=== PATIENT | female | born 1965 | race Caucasian/White ===

== ENCOUNTER 2017-05-01 18:19 | Emergency (ER) | payer MEDICAID ==
[2017-05-01 18:29] VITALS: BP 165/88; BMI 34.0
--- NOTE | 2017-05-01 18:43 | DR.GENAD ---
HPI - PCP Primary Care Physician: sean - Complaint/Symptoms Chief Complaint:: states" we went to see Dr. Sullivan's PA she said she was dehydrated and her blood pressure is real high " - Source History Provided: Patient - Mode of Arrival Mode of Arrival: Ambulatory - Timing Onset of Chief Complaint: 05/01/17 PMH - PMH Past Medical History: Yes Past Medical History: Asthma, Hypertension Past Medical History Comment: chronic back pain Past Surgical History: Yes Surgical History: SUSTAINABILITY MANAGER Surgery Past Surgical History Comment: back surgery tubaligation - Family History History of Family Medical Conditions: Yes Family Medical History: Cancer, Hypertension - Social History Type of Tobacco Use: Cigarettes Does any household member use tobacco: No Alcohol Use: None Do you use any recreational Drugs:: No Lives With: Family Lives Where: Home - infectious screening In the last 2 months have you had wt loss of >10#?: NO Have you had fever, night sweats or hemotysis?: No Have you traveled outside the country in the last 6 months?: No Isolation: Standard ROS - Review of Systems Eyes: No Symptoms Reported ENTM: No Symptoms Reported Respiratoy: No Symptoms Reported Cardiovascular: No Symptoms Reported Gastrointestinal/Abdominal: No Symptoms Reported Genitourinary: No Symptoms Reported Neurological: No Symptoms Reported Musculoskeletal: No Symptoms Reported Integumentary: No Symptoms Reported Hematologic/Lymphatic: No Symptoms Reported Endocrine: No Symptoms Reported Psychiatric: No Symptoms Reported All Other Systems: Reviewed and Negative PE - Vital Signs Vitals: Temperature 97.8 F Pulse Rate 82 Respiratory Rate 18 Blood Pressure 165/88 O2 Sat by Pulse Oximetry 96 - General Limitations: No Limitations General Appearance: Alert, In No Apparent Distress - Head Head Exam: Normal Inspection, Atraumatic - Eyes Eye exam: Normal Appearance, PERRL, EOMI - ENT ENT Exam: Normal Exam External Ear Exam: Normal External Inspection TM/Canal Exam: Bilateral Normal Nose Exam: Normal Nose Exam Mouth Exam: Normal Inspection Throat Exam: Normal Inspection - Neck Neck Exam: Normal Inspection - Chest Chest Inspection: Normal Inspection - Respiratory Respiratory Exam: Normal Lung Sounds Bilat Respiratory Exam: Bilateral Clear to Auscultation - Cardiovascular Cardiovascular Exam: Regular Rate, Normal Rhythm - Abdominal Exam Abdominal Exam: Normal Inspection, Normal Bowel Sounds, Soft Abdominal Tenderness: negative: RUQ, RLQ, LUQ, LLQ, Epigastrium, Suprapubic, Diffuse, Mild, Moderate, Severe, Other - Extremities Extremities Exam: Joint Swelling, Other (2+pitting lower extremities) - Back Back Exam: Normal Inspection, Full ROM - Neurologic Neurological Exam: Alert, Oriented X3, CN II-XII Intact - Psychiatric Psychiatric Exam: Normal Affect, Normal Mood - Skin Skin Exam: Warm, Dry, Intact Course - Reevaluation 1st: Unchanged ROR - Labs Reviewed Result Diagrams: 05/01/17 19:03 05/01/17 19:03 Laboratory: WBC 9.5 X10^3/uL (3.6-10.0) 05/01/17 19:03 RBC 5.20 X10^6/uL (3.5-5.4) 05/01/17 19:03 Hgb 16.3 g/dL (12.0-16.0) H 05/01/17 19:03 Hct 47.2 % (36.0-47.0) H 05/01/17 19:03 MCV 90.8 fL (80.0-100.0) 05/01/17 19:03 MCH 31.3 pg (27.0-34.0) 05/01/17 19:03 MCHC 34.5 g/dL (33.0-35.0) 05/01/17 19:03 RDW 14.9 % (11.6-16.5) 05/01/17 19:03 Plt Count 329 X10^3/uL (150.0-450.0) 05/01/17 19:03 MPV 7.9 fL (7.4-11.0) 05/01/17 19:03 Neut % 67.1 % (42.0-75.0) 05/01/17 19:03 Lymph % 21.2 % (21.0-51.0) 05/01/17 19:03 [place] % 7.3 % (0.0-13.0) 05/01/17 19:03 Eos % 3.2 % (0.9-2.9) H 05/01/17 19:03 Baso % 1.2 % (0.2-1.0) H 05/01/17 19:03 Neut # 6.4 x10^3/uL (2.2-4.8) H 05/01/17 19:03 Lymph # 2.0 X10^3/uL (1.3-2.9) 05/01/17 19:03 [place] # 0.7 x10^3/uL (0.3-0.8) 05/01/17 19:03 Eos # 0.3 x10^3/uL (0.0-0.2) H 05/01/17 19:03 Baso # 0.1 X10^3/uL (0.0-0.1) 05/01/17 19:03 Absolute Nucleated RBC 0.0 /100WBC 05/01/17 19:03 Sodium 137 mmol/L (136-145) 05/01/17 19:03 Corrected Sodium TNP 05/01/17 19:03 Potassium 4.5 mmol/L (3.5-5.1) 05/01/17 19:03 Chloride 99 mmol/L (98-107) 05/01/17 19:03 Carbon Dioxide 33.1 mmol/L (21-32) H 05/01/17 19:03 BUN 11 mg/dL (7-18) 05/01/17 19:03 Creatinine 0.87 mg/dL (0.55-1.02) 05/01/17 19:03 Est GFR (MDRD) Af Amer > 60 (>60) 05/01/17 19:03 Est GFR (MDRD) Non-Af > 60 (>60) 05/01/17 19:03 Glucose 101 mg/dL (65-99) H 05/01/17 19:03 Calcium 8.9 mg/dL (8.5-10.1) 05/01/17 19:03 Specimen Type Clean catch urine 05/01/17 20:00 Urine Color Yellow (YELLOW) 05/01/17 20:00 Urine Appearance Clear (CLEAR) 05/01/17 20:00 Urine pH 7.0 (5.0 - 8.0) 05/01/17 20:00 Ur Specific [place] 1.010 (1.000-1.030) 05/01/17 20:00 Urine Protein Negative (NEGATIVE) 05/01/17 20:00 Urine Glucose (UA) Negative (NEGATIVE) 05/01/17 20:00 Urine Ketones Negative (NEGATIVE) 05/01/17 20:00 Urine Occult Blood 1+ (NEGATIVE) 05/01/17 20:00 Urine Nitrite Negative (NEGATIVE) 05/01/17 20:00 Urine Bilirubin Negative (NEGATIVE) 05/01/17 20:00 Urine Urobilinogen Normal (NORMAL) 05/01/17 20:00 Ur Leukocyte Esterase 1+ (NEGATIVE) 05/01/17 20:00 Urine RBC 0-3 /HPF (NEGATIVE) 05/01/17 20:00 Urine WBC 2-4 /HPF (NEGATIVE) 05/01/17 20:00 Ur Squamous Epith Cells Rare /HPF (NEGATIVE) 05/01/17 20:00 Urine Bacteria Trace /HPF (NEGATIVE) 05/01/17 20:00 Ur Culture Indicated? No/not indicated 05/01/17 20:00 Influenza Type A (PCR) Negative (NEGATIVE) 05/01/17 19:03 Influenza Type B (PCR) Negative (NEGATIVE) 05/01/17 19:03 - XRAY XRAY Interpreted by: Radiologist (Chest: No acute cardiopulmonary disease) - Diagnosis Discharge Problem: Influenza-like illness - Discharge Plan Condition: Stable - Follow ups/Referrals Follow ups/Referrals: NFD,None [Primary Care Provider] - 3 days - Instructions
[2017-05-01] MEDS ORDERED: DUONEB 0.5 MG/3 MG NEB ONE (18:51)
[2017-05-01] MEDS ORDERED: DUONEB 0.5 MG/3 MG ONE (18:54)
[2017-05-01 19:22] LABS: BASOPHILS # (AUTO) 0.1 X10^3/uL (0.0-0.1); BASOPHILS % (AUTO) 1.2 % (0.2-1.0); EOSINOPHILS # (AUTO) 0.3 x10^3/uL (0.0-0.2); EOSINOPHILS % (AUTO) 3.2 % (0.9-2.9); HEMATOCRIT 47.2 % (36.0-47.0); HEMOGLOBIN 16.3 g/dL (12.0-16.0); LYMPHOCYTES % (AUTO) 21.2 % (21.0-51.0); MEAN CORPUSCULAR HEMOGLOBIN 31.3 pg (27.0-34.0); MEAN CORPUSCULAR HGB CONC 34.5 g/dL (33.0-35.0); MEAN CORPUSCULAR VOLUME 90.8 fL (80.0-100.0); MEAN PLATELET VOLUME 7.9 fL (7.4-11.0); MONOCYTES # (AUTO) 0.7 x10^3/uL (0.3-0.8); MONOCYTES % (AUTO) 7.3 % (0.0-13.0); NEUTROPHILS # (AUTO) 6.4 x10^3/uL (2.2-4.8); NEUTROPHILS % (AUTO) 67.1 % (42.0-75.0); PLATELET COUNT 329 X10^3/uL (150.0-450.0); RED CELL DISTRIBUTION WIDTH 14.9 % (11.6-16.5); WHITE BLOOD COUNT 9.5 X10^3/uL (3.6-10.0)
[2017-05-01 19:26] LABS: BLOOD UREA NITROGEN 11 mg/dL (7-18); CALCIUM 8.9 mg/dL (8.5-10.1); CARBON DIOXIDE 33.1 mmol/L (21-32); CHLORIDE 99 mmol/L (98-107); CREATININE 0.87 mg/dL (0.55-1.02); SODIUM 137 mmol/L (136-145); eGFR BLACK RACES > 60 (>60); eGFR NON BLACK RACES > 60 (>60)
--- NOTE | 2017-05-01 19:56 | RAD ---
HISTORY: Wheezing Study: Single-view chest Comparison: None available Findings: The trachea is midline. The cardiac silhouette is unremarkable. The lungs are clear without focal i nfiltrate or effusion. The bony thorax is unremarkable. IMPRESSION: 1. No acute cardiopulmonary disease. Reported By:
[2017-05-01 20:11] LABS: BILIRUBIN,URINE NEGATIVE (NEGATIVE); BLOOD/HEMOGLOBIN,URINE 1+ (NEGATIVE); GLUCOSE, URINE NEGATIVE (NEGATIVE); KETONES,URINE NEGATIVE (NEGATIVE); LEUKOCYTE ESTERASE ,URINE 1+ (NEGATIVE); NITRITES,URINE NEGATIVE (NEGATIVE); PROTEIN,URINE NEGATIVE (NEGATIVE); UROBILINOGEN,URINE NORMAL (NORMAL)
[2017-05-01 20:23] LABS: APPEARANCE,URINE CLEAR (CLEAR); BACTERIA,URINE TRACE /HPF (NEGATIVE); COLOR,URINE YELLOW (YELLOW); RBC,URINE 0-3 /HPF (NEGATIVE); SQUAMOUS EPITHELIAL CELL,UR RARE /HPF (NEGATIVE)
== END 2017-05-01 21:02 | disposition home or self-care (01) ==
LOC: ER 18:38
DX: J11.1 Influenza due to unidentified influenza virus with other respiratory manifestations (principal)
CPT/HCPCS: 36415; 71010; 80048; 81001; 85025; 87502; 94640; 99283; J7620

== ENCOUNTER → 2017-05-02 | Outpatient (CLI) | payer MEDICAID ==
[2014-01-09 00:27] VITALS: BP 129/85
--- NOTE | 2017-05-02 16:19 | CT ---
CT head without contrast Indication: Headache, syncope, dizziness Comparison: 01/19/2014 Technique: CT images of the head were obtained without contrast. Automatic exposure control was utili [employer]. Findings: There is no acute bleed, mass effect, or abnormal extra-axial collection. The ventricles ar e not significantly dilated. Patchy areas of white matter hypoattenuation are similar to prior and nelson ggestive for chronic microangiopathy. No acute skeletal abnormality identified. The visualized parana eda sinuses and mastoid air cells are clear. Impression: No acute intracranial abnormality. Reported By:
== END ==
LOC: RAD 14:17
PROVIDERS: ATTEND Nurse Practitioner
DX: R51 Headache (principal)
CPT/HCPCS: 70450

== ENCOUNTER 2018-04-09 14:50 | Inpatient (IN) ==
[2018-04-09] MEDS ORDERED: PHARMACY CONSULT - VANCOMYCIN XX SCH (15:47)
[2018-04-09] MEDS ORDERED: VANCOMYCIN HCL 1 GM VIAL 1 G in D5W 250 ML IV 250 ML IV SCH (16:00)
[2018-04-09 16:31] LABS: BASOPHILS # (AUTO) 0.1 X10^3/uL (0.0-0.1); BASOPHILS % (AUTO) 0.4 % (0.2-1.0); EOSINOPHILS # (AUTO) 0.3 x10^3/uL (0.0-0.2); EOSINOPHILS % (AUTO) 1.9 % (0.9-2.9); HEMATOCRIT 40.8 % (36.0-47.0); HEMOGLOBIN 13.7 g/dL (12.0-16.0); LYMPHOCYTES # (AUTO) 1.7 X10^3/uL (1.3-2.9); MEAN CORPUSCULAR HEMOGLOBIN 31.3 pg (27.0-34.0); MEAN CORPUSCULAR HGB CONC 33.5 g/dL (33.0-35.0); MEAN CORPUSCULAR VOLUME 93.4 fL (80.0-100.0); MEAN PLATELET VOLUME 8.2 fL (7.4-11.0); MONOCYTES # (AUTO) 1.4 x10^3/uL (0.3-0.8); MONOCYTES % (AUTO) 9.2 % (0.0-13.0); NEUTROPHILS % (AUTO) 77.5 % (42.0-75.0); PLATELET COUNT 479 X10^3/uL (150.0-450.0); RED BLOOD COUNT 4.37 X10^6/uL (3.5-5.4); RED CELL DISTRIBUTION WIDTH 15.7 % (11.6-16.5); WHITE BLOOD COUNT 15.5 X10^3/uL (3.6-10.0)
[2018-04-09] MEDS: TORADOL 30 MG VIAL IVP SCH ×2 (16:35→20:49)
[2018-04-09] MEDS: NS 1000 ML 1,000 ML IV SCH (16:35)
[2018-04-09 16:38] LABS: ALANINE AMINOTRANSFERASE 28 Units/L (12-78); ALBUMIN 3.2 g/dL (3.4-5.0); ALKALINE PHOSPHATASE 132 Units/L (46-116); ASPARTATE AMINO TRANSFERASE 40 Units/L (15-37); BLOOD UREA NITROGEN 13 mg/dL (7-18); CALCIUM 9.3 mg/dL (8.5-10.1); CARBON DIOXIDE 34.8 mmol/L (21-32); CHLORIDE 95 mmol/L (98-107); COR CA(FOR HYPOALB) 9.9 mg/dL (8.5-10.1); SODIUM 135 mmol/L (136-145); TOTAL PROTEIN 8.4 g/dL (6.4-8.2); eGFR NON BLACK RACES 55 (>60)
--- NOTE | 2018-04-09 16:52 | VAS ---
HISTORY: Left leg pain, edema and redness Study: Venous Doppler Ultrasound Lower Extremities Comparison: None TECHNIQUE: Multiple howell scale and color flow Doppler images of the deep venous system were obtained of the left lower extremity. FINDINGS: The deep venous system of the left lower extremity was evaluated from the level of the common femoral vein through the popliteal vein. Normal color flow and augmentation can be observed. In addition, normal compression is seen throughout the deep venous system. IMPRESSION: 1. Negative for DVT. Reported By:
[2018-04-09] MEDS: DUONEB 0.5 MG/3 MG NEB SCH (20:50)
[2018-04-10] MEDS: VANCOMYCIN HCL 1 GM VIAL 1 G in D5W 250 ML IV 250 ML IV SCH ×3 (00:02→21:18)
[2018-04-10] MEDS: TORADOL 30 MG VIAL IVP SCH ×4 (02:54→20:48)
[2018-04-10] MEDS: NS 1000 ML 1,000 ML IV SCH ×2 (04:46→17:57)
[2018-04-10 05:23] LABS: BASOPHILS # (AUTO) 0.1 X10^3/uL (0.0-0.1); EOSINOPHILS # (AUTO) 0.3 x10^3/uL (0.0-0.2); EOSINOPHILS % (AUTO) 2.9 % (0.9-2.9); HEMATOCRIT 37.3 % (36.0-47.0); HEMOGLOBIN 12.5 g/dL (12.0-16.0); LYMPHOCYTES # (AUTO) 1.4 X10^3/uL (1.3-2.9); LYMPHOCYTES % (AUTO) 13.1 % (21.0-51.0); MEAN CORPUSCULAR HEMOGLOBIN 31.6 pg (27.0-34.0); MEAN CORPUSCULAR HGB CONC 33.4 g/dL (33.0-35.0); MEAN CORPUSCULAR VOLUME 94.7 fL (80.0-100.0); MEAN PLATELET VOLUME 7.9 fL (7.4-11.0); MONOCYTES # (AUTO) 1.1 x10^3/uL (0.3-0.8); MONOCYTES % (AUTO) 10.6 % (0.0-13.0); NEUTROPHILS # (AUTO) 7.6 x10^3/uL (2.2-4.8); NEUTROPHILS % (AUTO) 72.4 % (42.0-75.0); PLATELET COUNT 376 X10^3/uL (150.0-450.0); RED BLOOD COUNT 3.94 X10^6/uL (3.5-5.4); RED CELL DISTRIBUTION WIDTH 15.2 % (11.6-16.5); WHITE BLOOD COUNT 10.4 X10^3/uL (3.6-10.0)
[2018-04-10 05:26] LABS: ALANINE AMINOTRANSFERASE 21 Units/L (12-78); ALBUMIN 2.6 g/dL (3.4-5.0); ALKALINE PHOSPHATASE 107 Units/L (46-116); ASPARTATE AMINO TRANSFERASE 26 Units/L (15-37); BLOOD UREA NITROGEN 15 mg/dL (7-18); CALCIUM 8.6 mg/dL (8.5-10.1); CARBON DIOXIDE 36.7 mmol/L (21-32); CHLORIDE 98 mmol/L (98-107); COR CA(FOR HYPOALB) 9.7 mg/dL (8.5-10.1); CREATININE 0.97 mg/dL (0.55-1.02); SODIUM 136 mmol/L (136-145); TOTAL PROTEIN 6.9 g/dL (6.4-8.2); eGFR NON BLACK RACES > 60 (>60)
[2018-04-10] MEDS: DUONEB 0.5 MG/3 MG NEB SCH ×4 (09:31→20:38)
[2018-04-10 15:29] VITALS: BMI 37.3
[2018-04-10] MEDS ORDERED: NITROSTAT SL PRN (16:32)
[2018-04-10] MEDS ORDERED: PATIENT'S HOME MEDICATION (Albuterol Sulfate [Proventil Hfa] 2 PUFF) IN PRN (16:32)
[2018-04-10] MEDS ORDERED: PHENERGAN TAB 25 MG PO PRN (16:32)
[2018-04-10] MEDS ORDERED: ZANAFLEX PO PRN (16:32)
[2018-04-10] MEDS ORDERED: PATIENT'S HOME MEDICATION (Oxycodone-Acetaminophen [Oxycodone-Acetaminophen] 1 TAB) PO PRN (16:32)
[2018-04-10] MEDS ORDERED: PATIENT'S HOME MEDICATION (Tiotropium Bromide 1 CAP) IN SCH (16:45)
[2018-04-10] MEDS ORDERED: PATIENT'S HOME MEDICATION (Umeclidinium-Vilanterol [Anoro Ellipta] 1 INH) IN SCH (16:45)
[2018-04-10] MEDS ORDERED: ULTRAM PO SCH (17:00)
[2018-04-10] MEDS ORDERED: ZESTRIL TAB 40 MG PO SCH (17:00)
[2018-04-10] MEDS: LOPRESSOR TAB 25 MG PO SCH (17:38)
[2018-04-10] MEDS: XANAX PO SCH ×2 (17:39→20:47)
[2018-04-10] MEDS: NICOTINE PATCH TD SCH (17:39)
[2018-04-10] MEDS: PERCOCET TAB 5/325 MG PO PRN (17:40)
[2018-04-10] MEDS: ZESTRIL TAB 40 MG PO SCH (17:57)
[2018-04-10] MEDS: TAPENTADOL 100 MG PO SCH (17:57)
--- NOTE | 2018-04-10 20:33 | DR.UPDATE ---
H&P Update History and Physical Update: WAS SEEN IN THE OFFICE TODAY. A H&P WAS COMPLETED PRIOR TO ADMISSION. PATIENT HAS BEEN SEEN AND EXAMINED WITH NO CHANGES NOTED TO H&P. Changes noted: NO Yes with the following:
--- NOTE | 2018-04-10 20:36 | PCM.PROG ---
Progress Note - Progress Note for Day of Date of Exam: 04/10/18 - Subjective Subjective: WAS ADMITTED FOR LLE CELLULITIS. TODAY, SHE IS ALERT AND ORIENTED, LYING IN BED ON MORNING ROUNDS. SHE IS NOTED WITH CONTINUED COMPLAINTS OF REDNESS, SWELLING, AND PAIN TO THE LEFT LEG. ON EXAMINATION, HEART IS REGULAR IN RATE AND RHYTHM. BILATERAL LUNGS ARE NOTED TO BE CLEAR TO AUSCULTATION. ABDOMEN IS ROUND, SOFT, AND NON-TENDER WITH NORMAL BOWEL SOUNDS NOTED IN ALL QUADRANTS. LEFT LEG IS NOTED WITH ERYTHEM AND EDEMA FROM HER ANKLE TO JUST ABOVE THE KNEE. THERE IS AN OPEN LESION TO THE LEFT LEG. NO DRAINAGE NOTED AT THIS TIME. SHE HAS BEEN AFEBRILE THROUGHOUT THE NIGHT. HER VITALS THIS MORNING ARE 98.1-91-20-100%-153/92. ABNROMAL LAB VALUES INCLUDE THE FOLLOWING: WBC 10.4, CARBON DIOXIDE 36.7, GLUCOSE 110, ALBUMIN 2.6. WOUND CULTURES AND BLOOD CULTURES ARE PENDING. A VENOUS DOPPLER WAS OBTAINED YESTERDAY AND IS NEGATIVE FOR DVT. SHE IS CURRENTLY RECEIVING VANCOMYCIN 1GM IV Q12H. TODAY, WE WILL CONTINUE WITH CURRENT PLAN OF CARE AND CONSULT FOR TREATMENT OF WOUND. OTHERWISE, WE PLAN TO FOLLOW UP WITH AM LABS AND CONTINUE TO MONITOR PATIENT. - Past Medical Family Social History Past Med/Fam/Surg Hx: No changes since H&P Allergies: Allergies ciprofloxacin [From Cipro] Allergy (Verified 02/20/18 11:48) levofloxacin [From Levaquin] Allergy (Verified 02/20/18 11:48) Sulfa (Sulfonamide Antibiotics) [SULFA] Allergy (Verified 02/20/18 11:48) - Review of Systems ROS: No change since H&P - Vital Signs and I&O's Vital Signs: Temperature 98.3 F Pulse Rate [Left Brachial] 107 Pulse Rate 117 Respiratory Rate 20 Blood Pressure [Left Arm] 160/81 Blood Pressure 146/83 O2 Sat by Pulse Oximetry 99 Intake and Output: Intake & Output 04/08/18 04/09/18 04/10/18 04/11/18 11:59 11:59 11:59 11:59 Intake Total 1580 / 1580 1295 / 1295 Balance 1580 / 1580 1295 / 1295 - Physical Exam Oriented: Normal Eyes: Normal Ear: Normal Nose: Normal Throat: Normal Respiratory: Normal Cardiovascular: Edema (LLE EDEMA ) : Normal Auscultation: Bowel Sounds: Normal Palpation: Normal Tenderness: Normal Skin: Red (LEFT LEG ), Tender, Hot, Wound (LEFT LEG ) Musculoskeletal: Normal Psychiatric: Normal Mood Description: Calm Affect: Normal Speech Pattern: Clear, Appropriate - Laboratory and Diagnostics Result Diagrams: 04/10/18 04:17 04/10/18 04:17 Labs: Laboratory WBC 10.4 X10^3/uL (3.6-10.0) H 04/10/18 04:17 RBC 3.94 X10^6/uL (3.5-5.4) 04/10/18 04:17 Hgb 12.5 g/dL (12.0-16.0) 04/10/18 04:17 Hct 37.3 % (36.0-47.0) 04/10/18 04:17 MCV 94.7 fL (80.0-100.0) 04/10/18 04:17 MCH 31.6 pg (27.0-34.0) 04/10/18 04:17 MCHC 33.4 g/dL (33.0-35.0) 04/10/18 04:17 RDW 15.2 % (11.6-16.5) 04/10/18 04:17 Plt Count 376 X10^3/uL (150.0-450.0) 04/10/18 04:17 MPV 7.9 fL (7.4-11.0) 04/10/18 04:17 Neut % (Auto) 72.4 % (42.0-75.0) 04/10/18 04:17 Lymph % (Auto) 13.1 % (21.0-51.0) L 04/10/18 04:17 [place] % (Auto) 10.6 % (0.0-13.0) 04/10/18 04:17 Eos % (Auto) 2.9 % (0.9-2.9) 04/10/18 04:17 Baso % (Auto) 1.0 % (0.2-1.0) 04/10/18 04:17 Neut # (Auto) 7.6 x10^3/uL (2.2-4.8) H 04/10/18 04:17 Lymph # (Auto) 1.4 X10^3/uL (1.3-2.9) 04/10/18 04:17 [place] # (Auto) 1.1 x10^3/uL (0.3-0.8) H 04/10/18 04:17 Eos # (Auto) 0.3 x10^3/uL (0.0-0.2) H 04/10/18 04:17 Baso # (Auto) 0.1 X10^3/uL (0.0-0.1) 04/10/18 04:17 Absolute Nucleated RBC 0.0 /100WBC 04/10/18 04:17 Sodium 136 mmol/L (136-145) 04/10/18 04:17 Corrected Sodium TNP 04/10/18 04:17 Potassium 5.1 mmol/L (3.5-5.1) 04/10/18 04:17 Chloride 98 mmol/L (98-107) 04/10/18 04:17 Carbon Dioxide 36.7 mmol/L (21-32) H 04/10/18 04:17 BUN 15 mg/dL (7-18) 04/10/18 04:17 Creatinine 0.97 mg/dL (0.55-1.02) 04/10/18 04:17 Est GFR (MDRD) Af Amer > 60 (>60) 04/10/18 04:17 Est GFR (MDRD) Non-Af > 60 (>60) 04/10/18 04:17 Glucose 110 mg/dL (65-99) H 04/10/18 04:17 Calcium 8.6 mg/dL (8.5-10.1) 04/10/18 04:17 Corrected Calcium 9.7 mg/dL (8.5-10.1) 04/10/18 04:17 Total Bilirubin 0.30 mg/dL (0.2-1.0) 04/10/18 04:17 AST 26 Units/L (15-37) 04/10/18 04:17 ALT 21 Units/L (12-78) 04/10/18 04:17 Alkaline Phosphatase 107 Units/L (46-116) 04/10/18 04:17 Total Protein 6.9 g/dL (6.4-8.2) 04/10/18 04:17 Albumin 2.6 g/dL (3.4-5.0) L 04/10/18 04:17 Globulin 4.3 g/dL (2.5-4.5) 04/10/18 04:17 Albumin/Globulin Ratio 0.6 Ratio (1.1-2.1) L 04/10/18 04:17 - Plan (1) Left leg cellulitis Status: Acute Plan: IV VANCOMYCIN, WOUND CARE, WOUND CULTURES, BLOOD CULTURES, CONSULT GENERAL SURGERY
[2018-04-10] MEDS: PULMICORT NEB TX 0.5 MG NEB SCH (20:38)
[2018-04-10] MEDS: LIPITOR TAB 40 MG PO SCH (20:47)
[2018-04-10 20:49] LABS: CREATININE 0.71 mg/dL (0.55-1.02); VANCOMYCIN,TROUGH 10.4 ug/mL (15-20)
[2018-04-10] MEDS ORDERED: PATIENT'S HOME MEDICATION (Fluticasone-Salmeterol 1 INH) IN SCH (21:00)
[2018-04-10] MEDS ORDERED: KLONOPIN TAB 1 MG PO SCH (21:00)
[2018-04-10] MEDS: KLONOPIN TAB 1 MG PO SCH (21:18)
[2018-04-10] MEDS: NEURONTIN CAP 400 MG PO SCH (21:19)
[2018-04-10] MEDS ORDERED: NEURONTIN CAP 400 MG PO SCH (22:00)
[2018-04-11] MEDS: PERCOCET TAB 5/325 MG PO PRN ×3 (02:13→20:06)
[2018-04-11] MEDS: TORADOL 30 MG VIAL IVP SCH ×5 (04:14→21:51)
[2018-04-11] MEDS: NEURONTIN CAP 400 MG PO SCH ×3 (05:08→22:00)
[2018-04-11] MEDS: TAPENTADOL 100 MG PO SCH ×2 (05:08→16:56)
[2018-04-11] MEDS: NS 1000 ML 1,000 ML IV SCH ×3 (05:13→21:54)
[2018-04-11 05:16] LABS: BASOPHILS # (AUTO) 0.1 X10^3/uL (0.0-0.1); BASOPHILS % (AUTO) 0.8 % (0.2-1.0); EOSINOPHILS # (AUTO) 0.4 x10^3/uL (0.0-0.2); EOSINOPHILS % (AUTO) 5.1 % (0.9-2.9); HEMATOCRIT 35.7 % (36.0-47.0); LYMPHOCYTES # (AUTO) 1.5 X10^3/uL (1.3-2.9); LYMPHOCYTES % (AUTO) 17.7 % (21.0-51.0); MEAN CORPUSCULAR HEMOGLOBIN 31.6 pg (27.0-34.0); MEAN CORPUSCULAR HGB CONC 33.6 g/dL (33.0-35.0); MEAN CORPUSCULAR VOLUME 94.1 fL (80.0-100.0); MEAN PLATELET VOLUME 7.9 fL (7.4-11.0); MONOCYTES # (AUTO) 0.8 x10^3/uL (0.3-0.8); MONOCYTES % (AUTO) 9.9 % (0.0-13.0); NEUTROPHILS # (AUTO) 5.6 x10^3/uL (2.2-4.8); NEUTROPHILS % (AUTO) 66.5 % (42.0-75.0); PLATELET COUNT 411 X10^3/uL (150.0-450.0); RED BLOOD COUNT 3.79 X10^6/uL (3.5-5.4); RED CELL DISTRIBUTION WIDTH 15.3 % (11.6-16.5); WHITE BLOOD COUNT 8.4 X10^3/uL (3.6-10.0)
[2018-04-11 05:31] LABS: ALANINE AMINOTRANSFERASE 21 Units/L (12-78); ALBUMIN 2.3 g/dL (3.4-5.0); ALKALINE PHOSPHATASE 97 Units/L (46-116); ASPARTATE AMINO TRANSFERASE 20 Units/L (15-37); BLOOD UREA NITROGEN 7 mg/dL (7-18); CALCIUM 8.4 mg/dL (8.5-10.1); CARBON DIOXIDE 33.3 mmol/L (21-32); CHLORIDE 101 mmol/L (98-107); COR CA(FOR HYPOALB) 9.8 mg/dL (8.5-10.1); CREATININE 0.78 mg/dL (0.55-1.02); SODIUM 138 mmol/L (136-145); TOTAL PROTEIN 6.5 g/dL (6.4-8.2); eGFR NON BLACK RACES > 60 (>60)
[2018-04-11] MEDS: NICOTINE PATCH TD SCH (08:02)
[2018-04-11] MEDS: VANCOMYCIN HCL 1 GM VIAL 1 G in D5W 250 ML IV 250 ML IV SCH ×2 (08:03→20:01)
[2018-04-11] MEDS ORDERED: PHARMACY COMMENT IV NR (08:30)
[2018-04-11] MEDS: ZESTRIL TAB 40 MG PO SCH ×2 (08:59→11:20)
[2018-04-11] MEDS: XANAX PO SCH ×3 (08:59→20:04)
[2018-04-11] MEDS: LOPRESSOR TAB 25 MG PO SCH ×2 (08:59→11:20)
[2018-04-11] MEDS: DUONEB 0.5 MG/3 MG NEB SCH ×4 (09:05→21:27)
[2018-04-11] MEDS: PULMICORT NEB TX 0.5 MG NEB SCH ×2 (09:05→21:27)
[2018-04-11] MEDS ORDERED: VERSED ONE (09:11)
[2018-04-11] MEDS ORDERED: DIPRIVAN VIAL ONE (09:11)
[2018-04-11] MEDS ORDERED: XYLOCAINE 1 % (PLAIN) ONE (10:59)
[2018-04-11] MEDS ORDERED: KETALAR ONE (10:59)
[2018-04-11] MEDS: ULTRAM PO PRN (14:00)
--- NOTE | 2018-04-11 15:10 | OR.GENERIC ---
Post-Op Note Generic - Post-Op Note Operative Report: debridement of infected wound Lt knee was done in the OR . 3 x 3 cm with tunneling 3 cm and associated cellulitis .. the cavity was irrigated and packed woth Iodoform .. Pt did well .. C&S was obtained .. to change dressing daily and same IV ATB pending cultures .
[2018-04-11] MEDS ORDERED: NS 100 ML IV 100 ML IV ONE (15:14)
--- NOTE | 2018-04-11 18:43 | CT ---
CTA OF THE ABDOMEN AND PELVIS AND BILATERAL LOWER EXTREMITY RUNOFF WITHOUT AND WITH CONTRAST CLINICAL INDICATION: Fall 1 week ago with left leg pain and edema TECHNIQUE: Written informed consent was obtained. Non-gated spiral axial images of the lower thorax, abdomen, pelvis and lower extremities were obtained with nonionic intravenous contrast. 3D reconstru ctions were performed. Dose reduction techniques including Automated Exposure Control (AEC) and adjus tment of mA and kV were utlized. COMPARISON: None. FINDINGS: VASCULAR: Abdominal Aorta: No significant stenosis. Superior Mesenteric Artery: No significant stenosis. Renal Arteries: No significant stenosis. Inferior Mesenteric Artery: No significant stenosis. RIGHT PELVIS/LOWER EXTREMITY: Right Common Iliac Artery: No significant stenosis. Right Internal Iliac Artery: No significant stenosis. Right External Iliac Artery: No significant stenosis. Right Common Femoral Artery: No significant stenosis. Right Profunda Femoris Artery: No significant stenosis. Right Superficial Femoral Artery: No significant stenosis. Right Popliteal Artery: No significant stenosis. Right Anterior Tibial Artery: No significant stenosis. Crosses the ankle to supply the dorsalis pedi s artery. Right Tibioperoneal Trunk: No significant stenosis. Right Posterior Tibial Artery: Poor distal opacification. Right Peroneal Artery: No significant stenosis. LEFT PELVIS/LOWER EXTREMITY: Left Common Iliac Artery: No significant stenosis. Left Internal Iliac Artery: No significant stenosis. Left External Iliac Artery: No significant stenosis. Left Common Femoral Artery: No significant stenosis. Left Profunda Femoris Artery: No significant stenosis. Left Superficial Femoral Artery: No significant stenosis. Left Popliteal Artery: No significant stenosis. Left Anterior Tibial Artery: No significant stenosis. Crosses the ankle to supply the dorsalis pedis artery. Left Tibioperoneal Trunk: No significant stenosis. Left Posterior Tibial Artery: Poor distal opacification Left Peroneal Artery: Poor distal opacification Abdomen without: No gallstones visible. 5 mm nonobstructing right renal stone. Abdomen with: Visualize portions of the liver is and spleen are normal in size, enhancement character istics and contour. No focal lesions. The portal vein is patent. No ductal dilitation. Gallbladder is present. No gallbladder wall thickening. The pancreas is unremarkable. Adrenal glands are normal. Ki dneys enhance symmetrically without hydronephrosis. No bowel obstruction or inflammation. No abnormal appearing mesenteric or retroperitoneal lymph node s. No free fluid or fluid collections. Pelvis without: No distal ureteral stones or bladder stones. Pelvis with: The bladder is normal in appearance. Uterus present. No free fluid or abnormal pelvic l ymph nodes. No aggressive osseous lesions. IMPRESSION: 1. No significant stenosis or occlusion of the artery of the lower extremities. Poor distal opacifica tion of the right anterior tibial and left posterior tibial and anterior tibial arteries. No abrupt c ut off therefore this may be secondary to generalized poor circular. Reported By:
[2018-04-11] MEDS: LIPITOR TAB 40 MG PO SCH (20:03)
[2018-04-11] MEDS: KLONOPIN TAB 1 MG PO SCH (20:04)
--- NOTE | 2018-04-11 20:21 | PCM.PROG ---
Progress Note - Progress Note for Day of Date of Exam: 04/11/18 - Subjective Subjective: WAS ADMITTED FOR LLE CELLULITIS. TODAY, SHE IS ALERT AND ORIENTED, LYING IN BED ON MORNING ROUNDS. SHE IS NOTED WITH CONTINUED COMPLAINTS OF REDNESS, SWELLING, AND PAIN TO THE LEFT LEG. ON EXAMINATION, HEART IS REGULAR IN RATE AND RHYTHM. BILATERAL LUNGS ARE NOTED TO BE CLEAR TO AUSCULTATION. ABDOMEN IS ROUND, SOFT, AND NON-TENDER WITH NORMAL BOWEL SOUNDS NOTED IN ALL QUADRANTS. LEFT LEG IS NOTED WITH ERYTHEM AND EDEMA FROM HER ANKLE TO JUST ABOVE THE KNEE. THERE IS AN OPEN LESION TO THE LEFT LEG. NO DRAINAGE NOTED AT THIS TIME. SHE HAS BEEN AFEBRILE THROUGHOUT THE NIGHT. HER VITALS THIS MORNING ARE 97.9-89-20-97%NC-137/71. ABNROMAL LAB VALUES INCLUDE THE FOLLOWING: HCT 35.7, CARBON DIOXIDE 33.3, CALCIUM 8.4, ALBUMIN 2.3. WOUND CULTURES AND BLOOD CULTURES ARE PENDING. WE CONSULTED YESTERDAY. HE PLANS TO TAKE PATIENT TO THE OR FOR DEBRIDEMENT TODAY. WE ARE IN AGREEMENT WITH PLAN. SHE IS CURRENTLY RECEIVING VANCOMYCIN 1GM IV Q12H. TODAY, WE WILL CONTINUE WITH CURRENT PLAN OF CARE. WE WILL ALSO OBTAIN A LOWER EXTREMITY CTA. OTHERWISE, WE PLAN TO FOLLOW UP WITH AM LABS AND CONTINUE TO MONITOR PATIENT. - Past Medical Family Social History Past Med/Fam/Surg Hx: No changes since H&P Allergies: Allergies ciprofloxacin [From Cipro] Allergy (Verified 02/20/18 11:48) levofloxacin [From Levaquin] Allergy (Verified 02/20/18 11:48) Sulfa (Sulfonamide Antibiotics) [SULFA] Allergy (Verified 02/20/18 11:48) - Review of Systems ROS: No change since H&P - Vital Signs and I&O's Vital Signs: Temperature 98.7 F Pulse Rate [Left Brachial] 92 Pulse Rate 103 Respiratory Rate 24 Blood Pressure [Right Arm] 156/83 Blood Pressure [Left Arm] 124/64 Blood Pressure 146/83 O2 Sat by Pulse Oximetry 98 Intake and Output: Intake & Output 04/09/18 04/10/18 04/11/18 04/12/18 11:59 11:59 11:59 11:59 Intake Total 1580 / 1580 3025 / 3025 1679 / 1679 Output Total 350 / 350 Balance 1580 / 1580 3025 / 3025 1329 / 1329 - Physical Exam Oriented: Normal Eyes: Normal Ear: Normal Nose: Normal Throat: Normal Respiratory: Normal Cardiovascular: Edema (LLE EDEMA ) : Normal Auscultation: Bowel Sounds: Normal Tenderness: Normal Skin: Red (LEFT LEG ), Tender, Hot, Wound (LEFT LEG ) Musculoskeletal: Normal Psychiatric: Normal Mood Description: Calm Affect: Normal Speech Pattern: Clear, Appropriate - Laboratory and Diagnostics Result Diagrams: 04/11/18 04:30 04/11/18 04:30 Labs: 04/11/18 13:24 Leg - Left Gram Stain - Final 04/09/18 16:05 Blood Blood Culture - Preliminary 04/09/18 15:59 Blood Blood Culture - Preliminary 04/10/18 19:12 Leg - Left Gram Stain - Final Laboratory WBC 8.4 X10^3/uL (3.6-10.0) 04/11/18 04:30 RBC 3.79 X10^6/uL (3.5-5.4) 04/11/18 04:30 Hgb 12.0 g/dL (12.0-16.0) 04/11/18 04:30 Hct 35.7 % (36.0-47.0) L 04/11/18 04:30 MCV 94.1 fL (80.0-100.0) 04/11/18 04:30 MCH 31.6 pg (27.0-34.0) 04/11/18 04:30 MCHC 33.6 g/dL (33.0-35.0) 04/11/18 04:30 RDW 15.3 % (11.6-16.5) 04/11/18 04:30 Plt Count 411 X10^3/uL (150.0-450.0) 04/11/18 04:30 MPV 7.9 fL (7.4-11.0) 04/11/18 04:30 Neut % (Auto) 66.5 % (42.0-75.0) 04/11/18 04:30 Lymph % (Auto) 17.7 % (21.0-51.0) L 04/11/18 04:30 [place] % (Auto) 9.9 % (0.0-13.0) 04/11/18 04:30 Eos % (Auto) 5.1 % (0.9-2.9) H 04/11/18 04:30 Baso % (Auto) 0.8 % (0.2-1.0) 04/11/18 04:30 Neut # (Auto) 5.6 x10^3/uL (2.2-4.8) H 04/11/18 04:30 Lymph # (Auto) 1.5 X10^3/uL (1.3-2.9) 04/11/18 04:30 [place] # (Auto) 0.8 x10^3/uL (0.3-0.8) 04/11/18 04:30 Eos # (Auto) 0.4 x10^3/uL (0.0-0.2) H 04/11/18 04:30 Baso # (Auto) 0.1 X10^3/uL (0.0-0.1) 04/11/18 04:30 Absolute Nucleated RBC 0.1 /100WBC 04/11/18 04:30 Sodium 138 mmol/L (136-145) 04/11/18 04:30 Corrected Sodium TNP 04/11/18 04:30 Potassium 4.4 mmol/L (3.5-5.1) 04/11/18 04:30 Chloride 101 mmol/L (98-107) 04/11/18 04:30 Carbon Dioxide 33.3 mmol/L (21-32) H 04/11/18 04:30 BUN 7 mg/dL (7-18) 04/11/18 04:30 Creatinine 0.78 mg/dL (0.55-1.02) 04/11/18 04:30 Est GFR (MDRD) Af Amer > 60 (>60) 04/11/18 04:30 Est GFR (MDRD) Non-Af > 60 (>60) 04/11/18 04:30 Glucose 90 mg/dL (65-99) 04/11/18 04:30 Calcium 8.4 mg/dL (8.5-10.1) L 04/11/18 04:30 Corrected Calcium 9.8 mg/dL (8.5-10.1) 04/11/18 04:30 Total Bilirubin 0.20 mg/dL (0.2-1.0) 04/11/18 04:30 AST 20 Units/L (15-37) 04/11/18 04:30 ALT 21 Units/L (12-78) 04/11/18 04:30 Alkaline Phosphatase 97 Units/L (46-116) 04/11/18 04:30 Total Protein 6.5 g/dL (6.4-8.2) 04/11/18 04:30 Albumin 2.3 g/dL (3.4-5.0) L 04/11/18 04:30 Globulin 4.2 g/dL (2.5-4.5) 04/11/18 04:30 Albumin/Globulin Ratio 0.5 Ratio (1.1-2.1) L 04/11/18 04:30 Vancomycin Trough 10.4 ug/mL (15-20) L 04/10/18 20:20 Tissue Pathology To follow 04/11/18 13:24 - Plan (1) Left leg cellulitis Status: Acute Plan: IV VANCOMYCIN, WOUND CARE, WOUND CULTURES, BLOOD CULTURES, DEBRIDEMENT TODAY
[2018-04-12] MEDS: PERCOCET TAB 5/325 MG PO PRN ×3 (01:54→17:05)
[2018-04-12] MEDS: TORADOL 30 MG VIAL IVP SCH ×4 (03:20→21:11)
[2018-04-12] MEDS: NS 1000 ML 1,000 ML IV SCH ×3 (03:21→18:49)
[2018-04-12] MEDS: NEURONTIN CAP 400 MG PO SCH ×3 (05:25→21:10)
[2018-04-12] MEDS: ULTRAM PO PRN ×2 (05:26→12:34)
[2018-04-12] MEDS: TAPENTADOL 100 MG PO SCH ×2 (05:27→17:05)
[2018-04-12 05:56] LABS: BASOPHILS # (AUTO) 0.2 X10^3/uL (0.0-0.1); BASOPHILS % (AUTO) 2.2 % (0.2-1.0); EOSINOPHILS # (AUTO) 0.5 x10^3/uL (0.0-0.2); EOSINOPHILS % (AUTO) 6.8 % (0.9-2.9); HEMATOCRIT 36.3 % (36.0-47.0); HEMOGLOBIN 12.1 g/dL (12.0-16.0); LYMPHOCYTES # (AUTO) 1.7 X10^3/uL (1.3-2.9); LYMPHOCYTES % (AUTO) 22.3 % (21.0-51.0); MEAN CORPUSCULAR HEMOGLOBIN 31.7 pg (27.0-34.0); MEAN CORPUSCULAR HGB CONC 33.2 g/dL (33.0-35.0); MEAN CORPUSCULAR VOLUME 95.4 fL (80.0-100.0); MEAN PLATELET VOLUME 8.1 fL (7.4-11.0); MONOCYTES # (AUTO) 0.5 x10^3/uL (0.3-0.8); MONOCYTES % (AUTO) 7.1 % (0.0-13.0); NEUTROPHILS # (AUTO) 4.6 x10^3/uL (2.2-4.8); NEUTROPHILS % (AUTO) 61.6 % (42.0-75.0); PLATELET COUNT 435 X10^3/uL (150.0-450.0); RED BLOOD COUNT 3.81 X10^6/uL (3.5-5.4); RED CELL DISTRIBUTION WIDTH 14.7 % (11.6-16.5); WHITE BLOOD COUNT 7.5 X10^3/uL (3.6-10.0)
[2018-04-12 06:15] LABS: ALANINE AMINOTRANSFERASE 21 Units/L (12-78); ALBUMIN 2.4 g/dL (3.4-5.0); ALKALINE PHOSPHATASE 107 Units/L (46-116); ASPARTATE AMINO TRANSFERASE 17 Units/L (15-37); BLOOD UREA NITROGEN 9 mg/dL (7-18); CALCIUM 8.2 mg/dL (8.5-10.1); CARBON DIOXIDE 31.9 mmol/L (21-32); CHLORIDE 104 mmol/L (98-107); COR CA(FOR HYPOALB) 9.5 mg/dL (8.5-10.1); CREATININE 0.85 mg/dL (0.55-1.02); SODIUM 140 mmol/L (136-145); TOTAL PROTEIN 6.5 g/dL (6.4-8.2); eGFR NON BLACK RACES > 60 (>60)
[2018-04-12] MEDS: PULMICORT NEB TX 0.5 MG NEB SCH ×2 (09:02→21:41)
[2018-04-12] MEDS: DUONEB 0.5 MG/3 MG NEB SCH ×4 (09:02→21:41)
[2018-04-12] MEDS: VANCOMYCIN HCL 1 GM VIAL 1 G in D5W 250 ML IV 250 ML IV SCH ×2 (09:30→21:07)
[2018-04-12] MEDS: NICOTINE PATCH TD SCH (09:30)
[2018-04-12] MEDS: LOPRESSOR TAB 25 MG PO SCH (09:30)
[2018-04-12] MEDS: XANAX PO SCH ×2 (09:30→21:11)
[2018-04-12] MEDS: ZESTRIL TAB 40 MG PO SCH (09:31)
[2018-04-12] MEDS ORDERED: PHARMACY COMMENT IV NR (20:30)
[2018-04-12 20:34] LABS: CREATININE 0.95 mg/dL (0.55-1.02); VANCOMYCIN,TROUGH 14.2 ug/mL (15-20)
--- NOTE | 2018-04-12 21:02 | PCM.PROG ---
Progress Note - Progress Note for Day of Date of Exam: 04/12/18 - Subjective Subjective: WAS ADMITTED FOR LLE CELLULITIS. TODAY, SHE IS ALERT AND ORIENTED, LYING IN BED ON MORNING ROUNDS. SHE IS NOTED WITH CONTINUED COMPLAINTS OF REDNESS, SWELLING, AND PAIN TO THE LEFT LEG. ON EXAMINATION, HEART IS REGULAR IN RATE AND RHYTHM. BILATERAL LUNGS ARE NOTED TO BE CLEAR TO AUSCULTATION. ABDOMEN IS ROUND, SOFT, AND NON-TENDER WITH NORMAL BOWEL SOUNDS NOTED IN ALL QUADRANTS. LEFT LEG IS NOTED WITH ERYTHEM AND EDEMA FROM HER ANKLE TO JUST ABOVE THE KNEE. DRESSING TO LEFT LEG IS DRY AND INTACT. SHE HAS BEEN AFEBRILE THROUGHOUT THE NIGHT. HER VITALS THIS MORNING ARE 98.0-91-20-94%-145/83. ABNROMAL LAB VALUES INCLUDE THE FOLLOWING: SHE IS HEMODYNAMICALLY STABLE TODAY. WOUND CULTURES AND BLOOD CULTURES ARE PENDING. TOOK PATIENT DOWN TO THE OR FOR DEBRIDEMENT TODAY. SHE IS CURRENTLY RECEIVING VANCOMYCIN 1GM IV Q12H. LOWER EXTREMITY CTA OBTAINED YESTERDAY AND REVEALED: No significant stenosis or occlusion of the artery of the lower extremities. Poor distal opacification of the right anterior tibial and left posterior tibial and anterior tibial arteries. No abrupt cut off therefore this may be secondary to generalized poor circular. TODAY, WE WILL CONTINUE WITH CURRENT PLAN OF CARE. OTHERWISE, WE PLAN TO FOLLOW UP WITH AM LABS AND CONTINUE TO MONITOR PATIENT. - Past Medical Family Social History Past Med/Fam/Surg Hx: No changes since H&P Allergies: Allergies ciprofloxacin [From Cipro] Allergy (Verified 02/20/18 11:48) levofloxacin [From Levaquin] Allergy (Verified 02/20/18 11:48) Sulfa (Sulfonamide Antibiotics) [SULFA] Allergy (Verified 02/20/18 11:48) - Review of Systems ROS: No change since H&P - Vital Signs and I&O's Vital Signs: Temperature 98.4 F Pulse Rate [Left Brachial] 87 Pulse Rate 84 Respiratory Rate 18 Blood Pressure [Right Arm] 141/94 Blood Pressure [Left Arm] 124/64 Blood Pressure 146/83 O2 Sat by Pulse Oximetry 97 Intake and Output: Intake & Output 04/10/18 04/11/18 04/12/18 04/13/18 11:59 11:59 11:59 11:59 Intake Total 1580 / 1580 3025 / 3025 2669 / 2669 240 / 240 Output Total 350 / 350 Balance 1580 / 1580 3025 / 3025 2319 / 2319 240 / 240 - Physical Exam Oriented: Normal Eyes: Normal Ear: Normal Nose: Normal Throat: Normal Respiratory: Normal Cardiovascular: Edema (LLE EDEMA ) : Normal Auscultation: Bowel Sounds: Normal Palpation: Normal Tenderness: Normal Skin: Red (LEFT LEG ), Tender, Hot, Wound (LEFT LEG ) Musculoskeletal: Normal Psychiatric: Normal Mood Description: Calm Affect: Normal Speech Pattern: Clear, Appropriate - Laboratory and Diagnostics Result Diagrams: 04/12/18 04:29 04/12/18 20:08 Labs: 04/11/18 13:24 Leg - Left Gram Stain - Final 04/11/18 13:24 Leg - Left Wound Culture - Preliminary 04/10/18 19:12 Leg - Left Gram Stain - Final 04/10/18 19:12 Leg - Left Wound Culture - Preliminary 04/09/18 16:05 Blood Blood Culture - Preliminary 04/09/18 15:59 Blood Blood Culture - Preliminary Laboratory WBC 7.5 X10^3/uL (3.6-10.0) 04/12/18 04:29 RBC 3.81 X10^6/uL (3.5-5.4) 04/12/18 04:29 Hgb 12.1 g/dL (12.0-16.0) 04/12/18 04:29 Hct 36.3 % (36.0-47.0) 04/12/18 04:29 MCV 95.4 fL (80.0-100.0) 04/12/18 04:29 MCH 31.7 pg (27.0-34.0) 04/12/18 04:29 MCHC 33.2 g/dL (33.0-35.0) 04/12/18 04:29 RDW 14.7 % (11.6-16.5) 04/12/18 04:29 Plt Count 435 X10^3/uL (150.0-450.0) 04/12/18 04:29 MPV 8.1 fL (7.4-11.0) 04/12/18 04:29 Neut % (Auto) 61.6 % (42.0-75.0) 04/12/18 04:29 Lymph % (Auto) 22.3 % (21.0-51.0) 04/12/18 04:29 [place] % (Auto) 7.1 % (0.0-13.0) 04/12/18 04:29 Eos % (Auto) 6.8 % (0.9-2.9) H 04/12/18 04:29 Baso % (Auto) 2.2 % (0.2-1.0) H 04/12/18 04:29 Neut # (Auto) 4.6 x10^3/uL (2.2-4.8) 04/12/18 04:29 Lymph # (Auto) 1.7 X10^3/uL (1.3-2.9) 04/12/18 04:29 [place] # (Auto) 0.5 x10^3/uL (0.3-0.8) 04/12/18 04:29 Eos # (Auto) 0.5 x10^3/uL (0.0-0.2) H 04/12/18 04:29 Baso # (Auto) 0.2 X10^3/uL (0.0-0.1) H 04/12/18 04:29 Absolute Nucleated RBC 0.0 /100WBC 04/12/18 04:29 Sodium 140 mmol/L (136-145) 04/12/18 04:29 Corrected Sodium TNP 04/12/18 04:29 Potassium 4.3 mmol/L (3.5-5.1) 04/12/18 04:29 Chloride 104 mmol/L (98-107) 04/12/18 04:29 Carbon Dioxide 31.9 mmol/L (21-32) 04/12/18 04:29 BUN 9 mg/dL (7-18) 04/12/18 04:29 Creatinine 0.95 mg/dL (0.55-1.02) 04/12/18 20:08 Est GFR (MDRD) Af Amer > 60 (>60) 04/12/18 04:29 Est GFR (MDRD) Non-Af > 60 (>60) 04/12/18 04:29 Glucose 98 mg/dL (65-99) 04/12/18 04:29 Calcium 8.2 mg/dL (8.5-10.1) L 04/12/18 04:29 Corrected Calcium 9.5 mg/dL (8.5-10.1) 04/12/18 04:29 Total Bilirubin 0.20 mg/dL (0.2-1.0) 04/12/18 04:29 AST 17 Units/L (15-37) 04/12/18 04:29 ALT 21 Units/L (12-78) 04/12/18 04:29 Alkaline Phosphatase 107 Units/L (46-116) 04/12/18 04:29 Total Protein 6.5 g/dL (6.4-8.2) 04/12/18 04:29 Albumin 2.4 g/dL (3.4-5.0) L 04/12/18 04:29 Globulin 4.1 g/dL (2.5-4.5) 04/12/18 04:29 Albumin/Globulin Ratio 0.6 Ratio (1.1-2.1) L 04/12/18 04:29 Vancomycin Trough 14.2 ug/mL (15-20) L 04/12/18 20:08 Tissue Pathology To follow 04/11/18 13:24 - Plan (1) Left leg cellulitis Status: Acute Plan: IV VANCOMYCIN, WOUND CARE, WOUND CULTURES, BLOOD CULTURES, CONTINUE TO MONITOR (2) Hypertension Status: Chronic Qualifiers: Hypertension type: essential hypertension Qualified Code(s): I10 - Essential (primary) hypertension Plan: CONTINUE HOME MEDS, CONTINUE TO MONITOR (3) Hyperlipidemia Status: Chronic Qualifiers: Hyperlipidemia type: mixed hyperlipidemia Qualified Code(s): E78.2 - Mixed hyperlipidemia Plan: CONTINUE HOME MEDS, CONTINUE TO MONITOR
[2018-04-12] MEDS: KLONOPIN TAB 1 MG PO SCH (21:10)
[2018-04-12] MEDS: LIPITOR TAB 40 MG PO SCH (21:10)
[2018-04-12] MEDS: BENADRYL CAP/TAB 25 MG PO PRN (21:10)
[2018-04-13] MEDS: PERCOCET TAB 5/325 MG PO PRN ×2 (01:28→08:59)
[2018-04-13] MEDS: TORADOL 30 MG VIAL IVP SCH ×2 (03:18→08:59)
[2018-04-13] MEDS: NS 1000 ML 1,000 ML IV SCH ×2 (03:33→10:16)
[2018-04-13] MEDS: TAPENTADOL 100 MG PO SCH (04:27)
[2018-04-13 05:19] LABS: BASOPHILS # (AUTO) 0.1 X10^3/uL (0.0-0.1); BASOPHILS % (AUTO) 1.2 % (0.2-1.0); EOSINOPHILS # (AUTO) 0.6 x10^3/uL (0.0-0.2); EOSINOPHILS % (AUTO) 6.4 % (0.9-2.9); HEMOGLOBIN 12.7 g/dL (12.0-16.0); LYMPHOCYTES # (AUTO) 1.7 X10^3/uL (1.3-2.9); LYMPHOCYTES % (AUTO) 18.8 % (21.0-51.0); MEAN CORPUSCULAR HEMOGLOBIN 31.8 pg (27.0-34.0); MEAN CORPUSCULAR HGB CONC 33.4 g/dL (33.0-35.0); MEAN CORPUSCULAR VOLUME 95.1 fL (80.0-100.0); MEAN PLATELET VOLUME 7.7 fL (7.4-11.0); MONOCYTES # (AUTO) 0.5 x10^3/uL (0.3-0.8); NEUTROPHILS # (AUTO) 5.9 x10^3/uL (2.2-4.8); NEUTROPHILS % (AUTO) 67.6 % (42.0-75.0); PLATELET COUNT 457 X10^3/uL (150.0-450.0); RED CELL DISTRIBUTION WIDTH 14.5 % (11.6-16.5); WHITE BLOOD COUNT 8.8 X10^3/uL (3.6-10.0)
[2018-04-13] MEDS: NEURONTIN CAP 400 MG PO SCH (05:20)
[2018-04-13] MEDS: ULTRAM PO PRN (05:20)
[2018-04-13] MEDS: BENADRYL CAP/TAB 25 MG PO PRN (05:21)
[2018-04-13 05:38] LABS: ALANINE AMINOTRANSFERASE 21 Units/L (12-78); ALBUMIN 2.5 g/dL (3.4-5.0); ALKALINE PHOSPHATASE 108 Units/L (46-116); ASPARTATE AMINO TRANSFERASE 15 Units/L (15-37); BLOOD UREA NITROGEN 15 mg/dL (7-18); CALCIUM 8.3 mg/dL (8.5-10.1); CHLORIDE 103 mmol/L (98-107); COR CA(FOR HYPOALB) 9.5 mg/dL (8.5-10.1); CREATININE 0.88 mg/dL (0.55-1.02); SODIUM 140 mmol/L (136-145); TOTAL PROTEIN 6.9 g/dL (6.4-8.2); eGFR NON BLACK RACES > 60 (>60)
[2018-04-13] MEDS: DUONEB 0.5 MG/3 MG NEB SCH (08:50)
[2018-04-13] MEDS: PULMICORT NEB TX 0.5 MG NEB SCH (08:50)
[2018-04-13] MEDS: NICOTINE PATCH TD SCH (08:58)
[2018-04-13] MEDS: LOPRESSOR TAB 25 MG PO SCH (08:58)
[2018-04-13] MEDS: VANCOMYCIN HCL 1 GM VIAL 1 G in D5W 250 ML IV 250 ML IV SCH (08:59)
[2018-04-13] MEDS: ZESTRIL TAB 40 MG PO SCH (08:59)
[2018-04-13] MEDS: XANAX PO SCH (08:59)
[2018-04-13 10:11] VITALS: BP 148/76
--- NOTE | 2018-06-11 23:42 | DR.CARTERD ---
- Discharge Summary for: Discharge Summary for Date of:: 04/13/18 - Admission Date Date of Admission: 04/09/18 - Admission Diagnoses Admission Diagnosis: (1) Left leg cellulitis - Discharge Date Discharge Date: 04/13/18 - Discharge Diagnoses Discharge Diagnosis: (1) Left leg cellulitis (2) Hypertension (3) Hyperlipidemia - Hospital Course Hospital Course: DAY ONE, WAS ADMITTED FOR LLE CELLULITIS. SHE IS NOTED WITH COMPLAINTS OF REDNESS, SWELLING, AND PAIN TO THE LEFT LEG. SHE STATED SHE HAD FELL MONDAY MADE TWO WEEKS AGO. THERE WAS A SORE ON HER LEFT KNEE AND LEFT LEG WAS SWOLLEN. WE CONTINUED TO MONITOR. DAY TWO, TODAY, SHE WAS ALERT AND ORIENTED, LYING IN BED ON MORNING ROUNDS. SHE WAS NOTED WITH CONTINUED COMPLAINTS OF REDNESS, SWELLING, AND PAIN TO THE LEFT LEG. ON EXAMINATION, HEART WAS REGULAR IN RATE AND RHYTHM. BILATERAL LUNGS WERE NOTED TO BE CLEAR TO AUSCULTATION. ABDOMEN WAS ROUND, SOFT, AND NON-TENDER WITH NORMAL BOWEL SOUNDS NOTED IN ALL QUADRANTS. LEFT LEG WAS NOTED WITH ERYTHEM AND EDEMA FROM HER ANKLE TO JUST ABOVE THE KNEE. THERE WAS AN OPEN LESION TO THE LEFT LEG. NO DRAINAGE NOTED AT THIS TIME. SHE HAD BEEN AFEBRILE THROUGHOUT THE NIGHT. HER VITALS THIS MORNING WERE 98.1-91-20-100%-153/92. ABNROMAL LAB VALUES INCLUDED THE FOLLOWING: WBC 10.4, CARBON DIOXIDE 36.7, GLUCOSE 110, ALBUMIN 2.6. WOUND CULTURES AND BLOOD CULTURES WERE PENDING. A VENOUS DOPPLER WAS OBTAINED YESTERDAY AND WAS NEGATIVE FOR DVT. SHE RECEIVED VANCOMYCIN 1GM IV Q12H. TODAY, WE CONTINUED WITH CURRENT PLAN OF CARE AND CONSULTED FOR TREATMENT OF WOUND. WE PLANNED TO FOLLOW UP WITH AM LABS AND CONTINUED TO MONITOR PATIENT. DAY THREE, SHE IS ALERT AND ORIENTED, LYING IN BED ON MORNING ROUNDS. SHE WAS NOTED WITH CONTINUED COMPLAINTS OF REDNESS, SWELLING, AND PAIN TO THE LEFT LEG. ON EXAMINATION, HEART WAS REGULAR IN RATE AND RHYTHM. BILATERAL LUNGS WERE NOTED TO BE CLEAR TO AUSCULTATION. ABDOMEN WAS ROUND, SOFT, AND NON-TENDER WITH NORMAL BOWEL SOUNDS NOTED IN ALL QUADRANTS. LEFT LEG WAS NOTED WITH ERYTHEM AND EDEMA FROM HER ANKLE TO JUST ABOVE THE KNEE. THERE WAS AN OPEN LESION TO THE LEFT LEG. NO DRAINAGE NOTED AT THIS TIME. SHE HAD BEEN AFEBRILE THROUGHOUT THE NIGHT. HER VITALS THIS MORNING WERE 97.9-89-20-97%NC-137/71. ABNROMAL LAB VALUES INCLUDED THE FOLLOWING: HCT 35.7, CARBON DIOXIDE 33.3, CALCIUM 8.4, ALBUMIN 2.3. WOUND CULTURES AND BLOOD CULTURES ARE PENDING. WE CONSULTED YESTERDAY. HE TOOK PATIENT TO THE OR FOR DEBRIDEMENT TODAY. SHE CONTINUED TO RECEIVE VANCOMYCIN 1GM IV Q12H. WE WILL CONTINUED WITH CURRENT PLAN OF CARE. WE ALSO OBTAINED A LOWER EXTREMITY CTA. WE PLANNED TO FOLLOW UP WITH AM LABS AND CONTINU E TO MONITOR PATIENT. DAY FOUR, SHE IS NOTED WITH CONTINUED COMPLAINTS OF REDNESS, SWELLING, AND PAIN TO THE LEFT LEG. ON EXAMINATION, HEART WAS REGULAR IN RATE AND RHYTHM. BILATERAL LUNGS ARE NOTED TO BE CLEAR TO AUSCULTATION. ABDOMEN WAS ROUND, SOFT, AND NON-TENDER WITH NORMAL BOWEL SOUNDS NOTED IN ALL QUADRANTS. LEFT LEG WAS NOTED WITH ERYTHEM AND EDEMA FROM HER ANKLE TO JUST ABOVE THE KNEE. DRESSING TO LEFT LEG IS DRY AND INTACT. SHE HAD BEEN AFEBRILE THROUGHOUT THE NIGHT. HER VITALS THIS MORNING WERE 98.0-91-20-94%-145/83. ABNROMAL LAB VALUES INCLUDED THE FOLLOWING: SHE WAS HEMODYNAMICALLY STABLE TODAY. WOUND CULTURES AND BLOOD CULTURES ARE PENDING. TOOK PATIENT DOWN TO THE OR FOR DEBRIDEMENT YESTERDAY. SHE IS CURRENTLY RECEIVING VANCOMYCIN 1GM IV Q12H. LOWER EXTREMITY CTA OBTAINED YESTERDAY AND REVEALED: No significant stenosis or occlusion of the artery of the lower extremities. Poor distal opacification of the right anterior tibial and left posterior tibial and anter ior tibial arteries. No abrupt cut off therefore this may be secondary to generalized poor circular. TODAY, WE WILL CONTINUE WITH CURRENT PLAN OF CARE. OTHERWISE, WE PLAN TO FOLLOW UP WITH AM LABS AND CONTINUE TO MONITOR PATIENT. DAY FIVE, PATIENT SYMPTOMS HAVE IMPROVED. NO ACUTE DISTRESS NOTED. PAIN, REDNESS, AND SWELLING IN LEFT LEG IMPROVED. VITALS ARE STABLE AND LABS ARE WITHIN NORMAL LIMITS. WE PLANNED FOR DISCHARGE, INSTRUCTIONS FOR MEDICATIONS AND FOLLOW UP WERE DISCUSSED WITH PATIENT AND FAMILY, BOTH VOICED UNDERSTANDING. PATIENT DISCHARGED HOME IN STABLE CONDITION. - Discharge Medications Discharge Medications: Home Medication List albuterol sulfate 2.5 mg INHALATION Q6H PRN 04/10/18 [History] albuterol sulfate [Proventil HFA] 2 puff INHALATION Q4H PRN 04/10/18 [History] alprazolam 1 mg PO BID 04/10/18 [History] aspirin 81 mg PO QDAY 04/10/18 [History] atorvastatin 40 mg PO HS 04/10/18 [History] clonazepam 1 mg PO HS 04/10/18 [History] clopidogrel 75 mg PO QDAY 04/10/18 [History] fluticasone-salmeterol [Advair Diskus] 1 inh INHALATION BID 04/10/18 [History] gabapentin 2 cap PO TID 04/10/18 [History] lisinopril 40 mg PO QDAY 04/10/18 [History] metoprolol tartrate 25 mg PO DAILY 04/10/18 [History] nicotine 1 patch TRANSDERMAL QDAY 04/10/18 [History] nitroglycerin [Nitrostat] 0.4 mg SUBLINGUAL Q5M PRN 04/10/18 [History] oxycodone-acetaminophen 1 tab PO TID PRN 04/10/18 [History] promethazine 25 mg PO .Q6-8H PRN 04/10/18 [History] tapentadol [Nucynta ER] 100 mg PO Q12H 04/10/18 [History] tiotropium bromide [Spiriva with HandiHaler] 1 cap INHALATION QDAY 04/10/18 [History] tizanidine 4 mg PO BID PRN 04/10/18 [History] tramadol 50 mg PO Q6HR PRN 04/10/18 [History] umeclidinium-vilanterol [Anoro Ellipta] 1 inh INHALATION Q24H 04/10/18 [History] gentamicin 1 applic TOPICAL BID #1 g 04/13/18 [Rx] rifampin [Rifadin] 300 mg PO BID #28 cap 04/13/18 [Rx] Prescriptions: gentamicin Kee Sullivan rifampin [Rifadin] Kee Sullivan - Discharge Disposition Discharge Disposition: PATIENT TO FOLLOW UP IN OUR OFFICE IN ONE WEEK.
== END 2018-04-13 11:30 | disposition home or self-care (01) | DRG 572 ==
LOC: MED/SURG 15:33
PROVIDERS: ADMIT Internal Medicine; ATTEND Internal Medicine
DX: W18.39XA Other fall on same level, initial encounter; Y92.89 Other specified places as the place of occurrence of the external cause; J44.9 Chronic obstructive pulmonary disease, unspecified; M51.37 Other intervertebral disc degeneration, lumbosacral region; L03.116 Cellulitis of left lower limb; M25.562 Pain in left knee; B95.62 Methicillin resistant Staphylococcus aureus infection as the cause of diseases classified elsewhere; I10 Essential (primary) hypertension; F41.1 Generalized anxiety disorder; S81.002A Unspecified open wound, left knee, initial encounter; R26.89 Other abnormalities of gait and mobility
CPT/HCPCS: 36415; 73706; 80053; 80202; 82565; 85025; 87040; 87070; 87075; 87077; 87186; 87205; 93971; 94640; 94760; 97116; 97162; 97165; A4216; A4222; Q0169; J1885; J2250; J2704; J3370; J3490; J7030; J7050; J7060; J7620; J7626